=== PATIENT | male | born 1965 | race Caucasian/White ===

== ENCOUNTER 2022-08-09 13:07 | Emergency (ER) | payer MEDICAID ==
[~2022-08-09] VITALS: Ht 165.1 cm; Wt 73.0 kg
[2022-08-09] MEDS ORDERED: POLY15DR31 EACHEYE (14:29)
[2022-08-09 15:00] VITALS: BP 127/81
== END 2022-08-09 15:03 | disposition home or self-care (01) ==
LOC: ER 13:07
DX: H11.32 Conjunctival hemorrhage, left eye (principal)
CPT/HCPCS: 99282